=== PATIENT | male | born 1985 | race Caucasian/White ===

== ENCOUNTER 2020-02-16 19:36 | Emergency (ER) | payer SELFPAY ==
[~2020-02-16] VITALS: Ht 185.4 cm; Wt 100.0 kg
[~2020-02-16 19:36] MED LIST: ACYCLOVIR800 MG OR
[2020-02-16] MEDS ORDERED: MOTRIN800 MG PO (19:58)
[2020-02-16] MEDS ORDERED: CLINDAMYCIN300 M1 PO (19:58)
[2020-02-16 20:05] VITALS: BP 146/91
== END 2020-02-16 20:05 | disposition home or self-care (01) | DRG 159 ==
LOC: ED 19:36
DX: K04.7 Periapical abscess without sinus (principal); K01.1 Impacted teeth; F17.200 Nicotine dependence, unspecified, uncomplicated